=== PATIENT | male | born 1945 | race Caucasian/White ===

== ENCOUNTER 2019-11-22 12:14 | Outpatient (REF) | payer MEDICARE, MEDICAID, SELFPAY ==
[2019-11-22 13:05] LABS: MANUAL DIFF FLAG NO
[2019-11-22 13:13] LABS: Basophils Absolute Auto 0.1 X10*3/uL (0.0-0.2); Eosinophils Absolute Auto 0.6 X10*3/uL (0.0-0.4); Imm Gran Abs Auto 0.03 X10*3/uL (0.00-0.03); Imm Gran Pct Auto 0.4 % (0.0-0.4); Lymphocytes Absolute Auto 1.2 X10*3/uL (1.2-4.9); Lymphocytes Percent Auto 17.2 % (20-40); Mean Corpuscular HGB Conc 33.3 g/dl (31.0-36.0); Mean Corpuscular Hemoglobin 32.1 pg (27.0-33.0); Mean Corpuscular Volume 96.4 fL (80-98); Mean Platelet Volume 10.7 fL (9.4-12.4); Monocytes Absolute Auto 0.6 X10*3/uL (0.1-1.2); Monocytes Percent Auto 8.3 % (2-11); Neutrophils Absolute Auto 4.5 X10*3/uL (2.0-8.3); Neutrophils Percent Auto 64.1 % (45-73); Platelet Count 219 X10*3/uL (160-400); Red Blood Count 4.67 X10*6/uL (4.60-5.80); Red Cell Distribution Width 13.6 % (11.0-16.0)
[2019-11-22 13:40] LABS: Alanine Aminotransferase 18 U/L (0-40); Albumin Level 4.4 g/dL (3.5-5.0); Alkaline Phosphatase 60 U/L (39-117); Aspartate Amino Transferase 21 U/L (5-37); Bilirubin Direct 0.2 mg/dL (0.0-0.5); Bilirubin Total 0.3 mg/dL (0.0-1.0); Blood Urea Nitrogen 12 mg/dL (9-16); Calcium 9.4 mg/dL (8.4-10.2); Estimated Glomerular Filt Rate > 60; Glucose Random 117 mg/dL (60-115); Total Protein 6.7 g/dL (6.5-8.0)
[2019-11-22 13:53] LABS: Anion Gap 9 (12-20); Carbon Dioxide 34 mmol/L (22-29); Chloride 100 mmol/L (96-108); Potassium 4.4 mmol/l (3.3-5.1); Sodium 139 mmol/L (135-145)
== END 2019-11-22 12:15 | disposition home or self-care (01) ==
LOC: HO.LAB 12:14
PROVIDERS: PCP Internal Medicine; Visit Provider Internal Medicine Pulmonary Disease
DX: A31.0 Pulmonary mycobacterial infection (principal)
CPT/HCPCS: 36415; 80048; 80076; 85025

== ENCOUNTER 2019-11-29 12:27 | Outpatient (REF) | payer MEDICARE, MEDICAID, SELFPAY ==
--- NOTE | 2019-11-29 12:32 | CT_ITS ---
EXAMINATION: CT CHEST WITHOUT CONTRAST CLINICAL INFORMATION: DOTTY infection COMPARISON: Previous chest x-rays most recent November 2018 TECHNIQUE: Multidetector volumetric CT imaging of the chest was done. Axial MIP volume rendering provided. Sagittal and coronal reformatted images were obtained. This CT examination was performed using dose optimization techniques as appropriate, variously including the following: *Automated exposure control *Adjustment of mA and/or kV according to patient size (this includes techniques or standardized protocols for targeted exams where dose is matched to indication/reason for exam; i.e. 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 There is volume loss to the right upper lobe. There is a thick-walled cavitary lesion in the right upper lobe. This is slightly decreased in size from recent exam November 2018 measuring 3 x 4 cm in transverse and AP dimension and 3.6 cm in length compared to 3.5 x 6 cm in AP and transverse dimension and 4 cm in length on November 2018 exam. This extends to the pleural surface. There is a 6 central spicule that extends through the central hilar region. There is a adjacent minimal consolidation with air bronchograms seen at the right lung apex along the superior anterior surface. These findings are unchanged. There are bilateral pulmonary nodules that are stable. Largest left pulmonary nodules are a 5 mm calcified left upper lobe nodule axial image 170 series 7 5 mm calcified left upper lobe nodule axial 307 series 7 and 4 x 6 mm partially calcified left lower lobe nodule axial image 420 series 7. Largest right pulmonary nodules are a 5 mm peripheral or subpleural right upper lobe nodule axial image 267 series 7 a 5 x 7 mm peripheral or subpleural noncalcified right lower lobe nodule axial image 449 series 7. There are scattered MEDIASTINUM: The visualized thyroid gland is unremarkable. There are no enlarged hilar or mediastinal lymph nodes. The heart does not appear enlarged. There is moderate coronary artery calcification. There is no pericardial effusion. The thoracic aorta is normal in caliber. PLEURA: There is no pleural effusion. No pleural mass or thickening. AXILLA: No chest wall mass or enlarged axillary lymph nodes are seen. UPPER ABDOMEN: There are multiple low-attenuation liver lesions that are stable probably representing small cysts. Both adrenal glands appear slightly prominent. There are old left renal calcifications. These findings are stable. OSSEOUS STRUCTURES: There are degenerative changes of the spine. IMPRESSION: Stable thick-walled cavitary lesion in the right upper lobe and volume loss from recent exams. Severe emphysema. Stable pulmonary nodules. Coronary artery calcification.
== END 2019-11-29 12:28 | disposition home or self-care (01) ==
LOC: HO.CT 12:27
PROVIDERS: PCP Internal Medicine; Visit Provider Internal Medicine Pulmonary Disease
DX: A31.0 Pulmonary mycobacterial infection (principal)
CPT/HCPCS: 71250

== ENCOUNTER → 2019-12-15 13:43 | Outpatient (BNVA) | payer MEDICARE, MEDICAID, SELFPAY | PROVIDERS: PCP Internal Medicine; Visit Provider Internal Medicine Pulmonary Disease | DX: J43.9 Emphysema, unspecified (principal); A31.0 Pulmonary mycobacterial infection; F17.200 Nicotine dependence, unspecified, uncomplicated | CPT/HCPCS: 99212 ==

== ENCOUNTER → 2020-03-22 12:42 | Outpatient (BNVA) | payer MEDICARE, MEDICAID, SELFPAY | PROVIDERS: PCP Internal Medicine; Visit Provider Internal Medicine Pulmonary Disease | DX: J44.9 Chronic obstructive pulmonary disease, unspecified (principal); A31.0 Pulmonary mycobacterial infection | CPT/HCPCS: 99212 ==